=== PATIENT | male | born 1990 ===

== ENCOUNTER 2018-02-13 14:03 | Outpatient (CLI) | payer OTHER | END 2018-02-13 16:36 | disposition home or self-care (01) | LOC: DCC 14:03 | DX: S48.9 Traumatic amputation of shoulder and upper arm, level unspecified (principal); S92.332D Displaced fracture of third metatarsal bone, left foot, subsequent encounter for fracture with routine healing; S92.342D Displaced fracture of fourth metatarsal bone, left foot, subsequent encounter for fracture with routine healing; S92.352D Displaced fracture of fifth metatarsal bone, left foot, subsequent encounter for fracture with routine healing; S20.219D Contusion of unspecified front wall of thorax, subsequent encounter; S36.112D Contusion of liver, subsequent encounter; X58.XXXD Exposure to other specified factors, subsequent encounter | CPT/HCPCS: G0463 ==